=== PATIENT | female | born 1985 | race Caucasian/White ===

== ENCOUNTER 2017-07-28 09:56 | Outpatient (CLI) | payer OTHER ==
[~2017-07-28] VITALS: Ht 167.6 cm; Wt 100.2 kg
[~2017-07-28 09:56] MED LIST: FERR27TA; PREN1TAB49
[2017-07-28 10:26] VITALS: Ht 167.6 cm; Wt 100.2 kg
[2017-07-28 10:27] VITALS: BP 116/56; PULSE 82; RESP 18
[2017-07-28 11:46] LABS: BASOPHILS % 0.3 % (0.0-2.0); EOSINOPHILS # 0.2 10^3/ul (0.0-0.5); EOSINOPHILS % 2.2 % (0.0-7.0); HEMATOCRIT 33.7 % (37.0-47.0); HEMOGLOBIN 10.9 g/dl (12.0-16.0); LYMPHOCYTES # 1.3 10^3/ul (0.8-2.9); LYMPHOCYTES % 16.9 % (15.0-51.0); MEAN CORPUSCULAR HEMOGLOBIN 26.5 pg (29.0-33.0); MEAN CORPUSCULAR HGB CONC 32.3 g/dl (32.0-37.0); MEAN CORPUSCULAR VOLUME 81.8 fl (82.0-101.0); MEAN PLATELET VOLUME 12.3 fl (7.4-10.4); MONOCYTE # 0.5 10^3/ul (0.3-0.9); MONOCYTES % 6.8 % (0.0-11.0); NEUTROPHIL # 5.4 10^3/ul (1.6-7.5); NEUTROPHILS % 73.3 % (39.0-77.0); PLATELET COUNT 191 10^3/UL (140-415); RED BLOOD COUNT 4.12 10^6/ul (4.20-5.40); RED CELL DISTRIBUTION WIDTH 14.9 % (11.5-14.5); WHITE BLOOD COUNT 7.4 10^3/ul (4.8-10.8)
[2017-07-28 12:15] LABS: ADD UMIC YES; UR ASCORBIC ACID NEGATIVE (NEGATIVE); UR BACTERIA FEW /HPF (NONE SEEN); UR BILIRUBIN (Dip) NEGATIVE (NEGATIVE); UR BLOOD (Dip) NEGATIVE (NEGATIVE); UR CLARITY CLEAR (CLEAR); UR COLOR YELLOW (YELLOW); UR GLUCOSE (Dip) NEGATIVE (NEGATIVE); UR KETONES (Dip) TRACE mg/dL (NEGATIVE); UR LEUKOCYTE ESTERASE (Dip) 2+ Leu/ul (NEGATIVE); UR NITRITE (Dip) NEGATIVE (NEGATIVE); UR RBC 3 /HPF (0-5); UR SPECIFIC GRAVITY (Dip) 1.009 (1.003-1.030); UR SQUAMOUS EPITHELIAL CELL FEW /HPF (FEW); UR TOTAL PROTEIN (Dip) NEGATIVE (NEGATIVE); UR UROBILINOGEN (Dip) 1+ mg/dL (NEGATIVE)
--- NOTE | 2017-07-28 12:25 | RADRPT ---
PROCEDURE: US OB biophysical profile. CLINICAL INDICATION: Contractions TECHNIQUE: Multiple sonographic images of the pelvis were obtained. The images were reviewed on a PACS workstation. COMPARISON: None FINDINGS: There is a single live intrauterine , in cephalic presentation. A normal heart rate i s identified measuring 137 beats per minute. The amniotic fluid index is within normal limits measur ing 9.7 cm. Biophysical profile: movement 2/2 tone 2/2. breathing 2/2 TODD 2/2 Total 04/05 IMPRESSION: 1. Biophysical profile score of 8/8. 2. Single live intrauterine in cephalic presentation with normal heart rate of 137 b pm. 3. Normal amniotic fluid index of 9.7 cm. RPTAT: AAPP Physician Jared Date Time Electronically viewed and signed by Physician Jared on 07/28/2017 12:25 SANDI/
[2017-07-28] MEDS ORDERED: NITR-58 PO ×2 (12:57→12:58)
--- NOTE | 2017-07-28 13:09 | TRIAGE ---
OB Triage Datetime Report Generated by CPN: 07/28/2017 13:09 Datetime: 07/28/2017 12:30 Stage of : OB Triage Maternal Assessment Level of Consciousness: Fully Conscious Labor Evaluation Frequency: 3UC/HR Monitor Mode: External Duration (sec)2399: 100-130 Quality: Mild Resting Tone [place]: Relaxed Heart Rate FHR Baseline Rate: 145 Monitor Mode: External US Variability: Moderate 6-25 bpm Accelerations: 15X15 Decelerations: None Pain Assessment Pain Scale: 5 Pain Presence: Constant Pain Type: Ache Pain Location: Abdomen Pain Goal: 3 Membrane Status: Intact Vaginal Bleeding: None Datetime: 07/28/2017 11:30 Stage of : OB Triage Maternal Assessment Level of Consciousness: Fully Conscious Labor Evaluation Frequency: 1UC/HR Monitor Mode: External Duration (sec)2399: 180 Quality: Mild Resting Tone [place]: Relaxed Heart Rate FHR Baseline Rate: 145 Monitor Mode: External US Variability: Moderate 6-25 bpm Accelerations: 15X15 Decelerations: None Category: Category I Pain Assessment Pain Scale: 5 Pain Presence: Constant Pain Type: Ache Pain Location: Abdomen Pain Goal: 3 Membrane Status: Intact Vaginal Bleeding: None Datetime: 07/28/2017 10:43 Vaginal Exam Dilatation (cms): 0.5 Effacement (%): 40 Station: -3 Exam By: TORRIE Vaginal Bleeding: None Cervix, Consistency: Moderate Cervix, Position: Posterior Datetime: 07/28/2017 10:24 Assessment Type: Triage Maternal Assessment Level of Consciousness: Fully Conscious DTR's/Clonus: DTRs 2+; No Clonus Headache: Denies Blurred Vision: No Respiratory Effort: Unlabored; Regular Rhythm; Equal Expansion Breath Sounds, Left: Clear and Equal Breath Sounds, Right: Clear and Equal Nausea/Vomiting: Denies RUQ Epigastric Pain: Denies Lower Extremities Edema: None Degree: None Upper Extremities Edema: None Degree: None Facial Edema: None Fall Risk Assessment History of Falling: (0) No Secondary Diagnosis: (0) No Ambulatory Aid: (0) Bedrest/Nurse Assist IV Therapy: (0) No Gait: (0) Normal/Bedrest/Immobile Mental Status: (0) Oriented to Own Ability Fall Score: 0 Fall Risk Score Definition: No Risk: No action required Datetime: 07/28/2017 10:21 Time of Arrival: 07/28/2017 09:46 EGA: 37.3 Arrived By: Ambulatory Arrived From: Home Chief Complaint: PT HERE C/O RUQ ABD. PAIN Movement: Present Contractions: Denies/Absent Rupture of Membranes: Denies Vaginal Bleeding: None Vaginal Discharge: Denies Recent Sexual Intercouse: Denies Abdominal Trauma: Not Applicable Time Provider Notified: 07/28/2017 10:00 Provider Notified: FOROOHAR Initial Plan: BPP/EFM/UA/CBC/ Datetime: 07/28/2017 10:18 Monitor Mode: External Monitor Mode: External US
--- NOTE | 2017-07-28 16:14 | CONS ---
Date/Time of Note Date/Time of Note DATE: 07/28/17 TIME: 16:06 Consultation Date/Type/Reason Admit Date/Time July 28, 2017 OB triage consult This patient is a 31 years old 6 para 4 1 living 4 old white vaginal delivery. Came in complaining of right upper quadrant pain. On examination she is a well-developed well-nourished somewhat overweight lady near-term. Her body weight has 100.2 kg. During this most of her tests were normal blood type is Rh- hepatitis B surface antigen HIV gonorrhea chlamydia all were negative RPR was nonreactive and she is immune to rubella. On general examination the findings are fairly normal with blood pressure of 116 /56, pulse rate 82, respiration 18, temperature 98.3, O2 saturation at room temperature was 99%. Reason for Consultation Laboratory Tests Test 07/28/17 11:00 White Blood Count 7.410^3/ul Red Blood Count 4.1210^6/ul Hemoglobin 10.9g/dl Hematocrit 33.7% Mean Corpuscular Volume 81.8fl Mean Corpuscular Hemoglobin 26.5pg Mean Corpuscular Hemoglobin Concent 32.3g/dl Red Cell Distribution Width 14.9% Platelet Count 84867^3/UL Mean Platelet Volume 12.3fl Neutrophils % 73.3% Lymphocytes % 16.9% Monocytes % 6.8% Eosinophils % 2.2% Basophils % 0.3% Nucleated Red Blood Cells % 0.0/100WBC Neutrophils # 5.410^3/ul Lymphocytes # 1.310^3/ul Monocytes # 0.510^3/ul Eosinophils # 0.210^3/ul Basophils # 0.010^3/ul Nucleated Red Blood Cells # 0.010^3/ul Urine Color YELLOW Urine Clarity CLEAR Urine pH 7.0 Urine Specific [place] 1.009 Urine Ketones TRACEmg/dL Urine Nitrite NEGATIVEmg/dL Urine Bilirubin NEGATIVEmg/dL Urine Urobilinogen 1+mg/dL Urine Leukocyte Esterase 2+Cici/ul Urine Microscopic RBC 3/HPF Urine Microscopic WBC 9/HPF Urine Squamous Epithelial Cells FEW/HPF Urine Bacteria FEW/HPF Urine Hemoglobin NEGATIVEmg/dL Urine Glucose NEGATIVEmg/dL Urine Total Protein NEGATIVEmg/dl Constitutional: No chills, No diaphoresis, No disoriented, No febrile, No improved, No no complaints, No other, No poor po, No requiring IVF, No requiring O2 Eyes: No discharge, No no complaints, No other, No pain, No redness, No visual change ENT: No bleeding, No congestion, No discharge, No dysphagia, No no complaints, No other, No pain, No sore throat Cardiovascular: No chest pain, No edema, No lightheadedness, No no complaints, No orthopenea, No other, No palpitations, No paroxysmal nocturnal dyspnea Gastrointestinal: No blood, No constipation, No decreased appetite, No diarrhea , No flatus, No nausea, No no complaints, No other, No pain, No passing stool, No vomiting Genitourinary: other (On pelvic examination the cervix was about 1 fingertip thick and hollowing in the membrane was intact), No bleeding, No discharge, No dysuria, No flank pain, No hematuria, No no complaints Musculoskeletal: No back pain, No bone/joint pain, No neck pain, No no complaints, No other, No restricted range of motion, No swelling Skin: No bruising, No erythema, No laceration, No no complaints, No other, No pruritis, No rash, No skin lesions Neurologic: other (Knee-jerk reflex was normal), No confusion, No dizziness, No focal-weakness, No headache, No no complaints , No seizure, No syncope Endocrine: No dry skin, No no complaints, No other, No polydypsia, No polyuria , No temp intolerance Additional Comments . On urine exam was 1+ urobilinogen and leukoesterase was 2+ positive WBC was 9 on her CBC she has anemic with hemoglobin of 11.9 hematocrit 37.7 otherwise CBC was within normal limits On ultrasound study report is single live intrauterine in vertex presentation heartbeat of 137 amniotic fluid index was reported 9.7 cm the biophysical profile was 8/8 Disposition. With these findings patient was given a prescription for Macrobid 100 mg to be taken twice a day for 10 days. On the urine specimen for sent for urinalysis and culture and sensitivity. Patient was informed that to ask her attending physician to call the lab in about 3 days to check the result of the culture and sensitivity to adjust the antibiotic treatment accordingly end of dictation .. Social History Smoking Status: Never smoker Exam/Review of Systems Vital Signs Vitals Vital Signs Date Time Temp Pulse Resp B/P Pulse Ox O2 Delivery O2 Flow Rate FiO2 07/28/17 10:27 98.3 82 18 116/56 99 Room Air Results Result Diagram: 07/28/17 1100 Results 24 hrs Laboratory Tests Test 07/28/17 11:00 White Blood Count 7.4 Red Blood Count 4.12 L Hemoglobin 10.9 L Hematocrit 33.7 L Mean Corpuscular Volume 81.8 L Mean Corpuscular Hemoglobin 26.5 L Mean Corpuscular Hemoglobin Concent 32.3 Red Cell Distribution Width 14.9 H Platelet Count 191 Mean Platelet Volume 12.3 H Neutrophils % 73.3 Lymphocytes % 16.9 Monocytes % 6.8 Eosinophils % 2.2 Basophils % 0.3 Nucleated Red Blood Cells % 0.0 Neutrophils # 5.4 Lymphocytes # 1.3 Monocytes # 0.5 Eosinophils # 0.2 Basophils # 0.0 Nucleated Red Blood Cells # 0.0 Urine Color YELLOW Urine Clarity CLEAR Urine pH 7.0 Urine Specific [place] 1.009 Urine Ketones TRACE A Urine Nitrite NEGATIVE Urine Bilirubin NEGATIVE Urine Urobilinogen 1+ H Urine Leukocyte Esterase 2+ H Urine Microscopic RBC 3 Urine Microscopic WBC 9 H Urine Squamous Epithelial Cells FEW Urine Bacteria FEW A Urine Hemoglobin NEGATIVE Urine Glucose NEGATIVE Urine Total Protein NEGATIVE MARNI OLMEDO MD Jul 28, 2017 16:14
== END 2017-07-28 13:08 | disposition home or self-care (01) ==
LOC: L-D 09:56 → OBT 09:56
PROVIDERS: ATTEND Obstetrics & Gynecology
DX: O26.893 Other specified pregnancy related conditions, third trimester (principal); Z3A.37 37 weeks gestation of pregnancy; R10.11 Right upper quadrant pain
CPT/HCPCS: 36415; 76818; 81001; 85025; 87086; Z7500; G0463

== ENCOUNTER 2017-08-12 11:02 | Inpatient (IN) | payer OTHER ==
[~2017-08-12] VITALS: Ht 167.6 cm; Wt 100.2 kg
[~2017-08-12 11:02] MED LIST changes: +NITR-58 PO
[2017-08-12 11:27] VITALS: BP 128/80; PULSE 71; RESP 18; Ht 167.6 cm; Wt 100.2 kg
--- NOTE | 2017-08-12 12:37 | RADRPT ---
PROCEDURE: US OB biophysical profile. CLINICAL INDICATION: Decreased movement TECHNIQUE: Multiple sonographic images of the pelvis were obtained. The images were reviewed on a PACS workstation. COMPARISON: None FINDINGS: There is a single live intrauterine , in cephalic presentation. A normal heart rate i s identified measuring 122 beats per minute. The amniotic fluid index is within normal limits measur ing 14.4 cm. The placenta is grade II, located posteriorly. Biophysical profile: movement 2/2 tone 2/2. breathing 2/2 TODD 2/2 Total 04/05 IMPRESSION: 1. Biophysical profile score of 04/05. 2. Single live intrauterine in cephalic presentation with normal heart rate of 122 b pm. 3. Normal amniotic fluid index of 14.4 cm. RPTAT: AAPP Physician Jared Date Time Electronically viewed and signed by Physician Jared on 08/12/2017 12:37 SANDI/
--- NOTE | 2017-08-12 14:19 | TRIAGE ---
OB Triage Datetime Report Generated by CPN: 08/12/2017 14:19 Datetime: 08/12/2017 14:09 Labor Evaluation Frequency: 2-5 Monitor Mode: External Duration (sec)2399: 40-50 Quality: Mild Resting Tone [place]: Relaxed Heart Rate FHR Baseline Rate: 135 Monitor Mode: External US Variability: Moderate 6-25 bpm Accelerations: 10X10 Decelerations: None Category: Category I Pain Assessment Pain Scale: 4 Pain Presence: Intermittent Pain Type: Cramping Pain Location: Abdomen Pain Goal: 3 Pain Relief Measures: Comfort Measures Datetime: 08/12/2017 14:02 Stage of : OB Triage Vaginal Exam Dilatation (cms): 4.0 Effacement (%): 70 Exam By: DR BROWNLEE Vaginal Bleeding: None Cervix, Consistency: Soft Cervix, Position: Midposition Presentation 'A': Cephalic Datetime: 08/12/2017 14:00 Vaginal Exam Dilatation (cms): 1.5 Effacement (%): 60 Station: -2 Exam By: Robby CARLOS Vaginal Bleeding: None Cervix, Consistency: Soft Cervix, Position: Posterior Presentation 'A': Cephalic Datetime: 08/12/2017 12:29 Labor Evaluation Frequency: 7-8 Monitor Mode: External Duration (sec)2399: 50-60 Pattern: Normal: <= 5 Contractions in 10 Minutes Resting Tone [place]: Relaxed Heart Rate FHR Baseline Rate: 135 Monitor Mode: External US Variability: Moderate 6-25 bpm Accelerations: 10X10 Decelerations: None Category: Category I Pain Assessment Pain Scale: 5 Pain Presence: Intermittent Pain Type: Cramping Pain Location: Abdomen Pain Goal: 3 Pain Relief Measures: Comfort Measures Datetime: 08/12/2017 11:57 Stage of : OB Triage Datetime: 08/12/2017 11:14 Stage of : OB Triage Assessment Type: Triage Maternal Assessment Level of Consciousness: Fully Conscious DTR's/Clonus: DTRs 2+; No Clonus Headache: Denies Blurred Vision: No Respiratory Effort: Unlabored; Regular Rhythm; Equal Expansion Breath Sounds, Left: Clear and Equal Breath Sounds, Right: Clear and Equal Nausea/Vomiting: Denies RUQ Epigastric Pain: Denies Facial Edema: None Temperature Route: Axillary Fall Risk Assessment History of Falling: (0) No Secondary Diagnosis: (0) No Ambulatory Aid: (0) Bedrest/Nurse Assist IV Therapy: (0) No Gait: (0) Normal/Bedrest/Immobile Mental Status: (0) Oriented to Own Ability Fall Score: 0 Fall Risk Score Definition: No Risk: No action required Labor Evaluation Frequency: 0 Monitor Mode: External Resting Tone [place]: Relaxed Interventions: Sterile Vaginal Exam Heart Rate FHR Baseline Rate: 125 Monitor Mode: External US Variability: Moderate 6-25 bpm Accelerations: 10X10 Decelerations: None Category: Category I Pain Assessment Pain Scale: 7 Pain Presence: Intermittent Pain Type: Cramping; Contraction Pain Location: Abdomen; Perineum Pain Goal: 3 Pain Relief Measures: Comfort Measures Vaginal Exam Dilatation (cms): 0.5 Effacement (%): 50 Station: -3 Exam By: Robby BREANNA Membrane Status: Intact Datetime: 08/12/2017 11:12 Time of Arrival: 08/12/2017 11:00 EGA: 39.4 Arrived By: Ambulatory Arrived From: Home Chief Complaint: C/O UC'S PAST 2 DAYS Q 5-6 MIN, WITH SM AMT OF BLEEDING, DENIES LEAKING Movement: Decreased Contractions: Irregular Contractions: 5-7 Rupture of Membranes: Denies Vaginal Bleeding: Scant Vaginal Discharge: Denies Recent Sexual Intercouse: Denies Abdominal Trauma: Not Applicable Patient Complaints: Contractions; Cramping Time Provider Notified: 08/12/2017 11:57 Provider Notified: TORRIE Initial Plan: MONITOR, VE, Datetime: 07/28/2017 10:24 Fall Score: 0 Fall Risk Score Definition: No Risk: No action required Datetime: 07/28/2017 10:21 EGA: 37.3
[2017-08-12] MEDS ORDERED: LIDOCAINE 1% (MPF) 30 ML INJ INJ PRN (14:30)
[2017-08-12] MEDS ORDERED: CARBOPROST 250 MCG INJ IM PRN (14:30)
[2017-08-12] MEDS ORDERED: OXYTOCIN 30 UNITS/LR 500 ML IV PRN (14:30)
[2017-08-12] MEDS ORDERED: BUTORPHANOL 2 MG INJ IV PRN ×2 (14:30)
[2017-08-12] MEDS ORDERED: OXYTOCIN 30 UNITS/LR 500 ML IV SCH ×2 (14:30)
[2017-08-12] MEDS ORDERED: MISOPROSTOL 200 MCG TAB PR PRN (14:30)
[2017-08-12] MEDS ORDERED: METHYLERGONOVINE 0.2 MG INJ IM PRN (14:30)
[2017-08-12] MEDS: LACTATED RINGER'S 1,000 ML IV SCH (15:21)
[2017-08-12 15:23] LABS: BASOPHILS % 0.4 % (0.0-2.0); EOSINOPHILS # 0.2 10^3/ul (0.0-0.5); EOSINOPHILS % 1.9 % (0.0-7.0); HEMATOCRIT 35.4 % (37.0-47.0); HEMOGLOBIN 11.8 g/dl (12.0-16.0); LYMPHOCYTES # 1.5 10^3/ul (0.8-2.9); LYMPHOCYTES % 18.3 % (15.0-51.0); MEAN CORPUSCULAR HEMOGLOBIN 26.6 pg (29.0-33.0); MEAN CORPUSCULAR HGB CONC 33.3 g/dl (32.0-37.0); MEAN CORPUSCULAR VOLUME 79.9 fl (82.0-101.0); MONOCYTE # 0.5 10^3/ul (0.3-0.9); MONOCYTES % 5.5 % (0.0-11.0); NEUTROPHIL # 6.1 10^3/ul (1.6-7.5); NEUTROPHILS % 73.7 % (39.0-77.0); PLATELET COUNT 172 10^3/UL (140-415); RED BLOOD COUNT 4.43 10^6/ul (4.20-5.40); RED CELL DISTRIBUTION WIDTH 14.9 % (11.5-14.5); WHITE BLOOD COUNT 8.2 10^3/ul (4.8-10.8)
[2017-08-12 15:38] LABS: INR 0.93; PARTIAL THROMBOPLASTIN TIME 26.3 Sec (25.0-35.0); PROTIME 12.6 Sec (11.9-14.9)
[2017-08-12] MEDS: LACTATED RINGER'S 1,000 ML IV PRN ×2 (19:49→21:45)
[2017-08-12] MEDS ORDERED: FENTAnyl 2MCG/ML-ROPIV 0.2% 100 ML ONE (21:34)
[2017-08-12] MEDS ORDERED: EPHEDrine SULFATE 50 MG/5 ML SYG IV PRN (22:30)
[2017-08-12] MEDS ORDERED: DIPHENHYDRAMINE 50 MG INJ IV PRN (22:30)
[2017-08-12] MEDS ORDERED: FENTAnyl 2MCG/ML-ROPIV 0.2% 100 ML BAG EPI SCH (22:30)
[2017-08-12] MEDS ORDERED: ONDANSETRON 4 MG INJ IV PRN (22:30)
[2017-08-12] MEDS ORDERED: NALOXONE (0.4 MG/ML) INJ IV PRN (22:30)
[2017-08-13] MEDS ORDERED: OXYTOCIN 30 UNITS/LR 500 ML IV SCH
[2017-08-13] MEDS: LACTATED RINGER'S 1,000 ML IV SCH (02:02)
--- NOTE | 2017-08-13 04:12 | HP ---
Date/Time of Note Date/Time of Note DATE: 08/13/17 TIME: 04:06 OB - History Hx of Present Free Text/Dictation 31 y.o (iab) at 39w4 in early laborwith intact membrane initial ve 50/-3 GBS unknown admitted for expectant management. desire to have pp tubal sterilization Chief Complaint: UC Estimated Due Date: Aug 15, 2017 : 6 Para: 4 Spontaneous : 0 Therapeutic : 1 Care: Good Care Ultrasounds: Normal mid trimester US Obstetrical Complications: None Medical Complications: None Past Family/Social History * Past Medical, Surgical, Family and Obstetric Histories reviewed from chart. Blood Type: AB+ Rubella: immune RPR/VDRL: Negative GBS Status: Unknown HBsAG: Negative OB Admission Exam Vital Signs Vital Signs Vital Signs Date Time Temp Pulse Resp B/P Pulse Ox O2 Delivery O2 Flow Rate FiO2 08/12/17 11:27 97.6 71 18 128/80 Room Air Physical Exam HEENT: WNL Heart: Rhythm Normal Lungs: Clear, Equal Abdomen: WNL Extremities: Normal Reflexes: Normal Cervical Dilatation: 1cm Effacement: 50% Station: -3 Membranes: Intact Amniotic Fluid: Unevaluable Heart Rate: 120's Accelerations: Accelerations Present Decelerations: No Decelerations Varibility: Moderate Contractions on Admission: < 5 Minutes Apart Intensity: Mild Last 72 hours Lab Results CBC & BMP 08/12/17 14:50 OB Assessment/Plan Other Assessment: IUP 39w4d in early labor Plan: Expectant Management BRENDAN MONTERO MD Aug 13, 2017 04:12
--- NOTE | 2017-08-13 04:16 | LDN ---
Date/Time of Note Date/Time of Note DATE: 08/13/17 TIME: 04:12 Delivery Summary of normal female infant Weeks of Gestation 39w5d Placenta Delivered: Spontaneously Episiotomy: No Perineal laceration: 1 Laceration repair: 000ch gut Anesthesia type: Epidural Sponge & Needle done & correct: Yes All needle counts correct: Yes Any foreign bodies felt in the: No Problems: Infant Delivery Information Sex Infant Sex: female Apgars 1 Minute: 8 5 Minute: 9 Suctioning Nose & mouth suctioned at mary lou: Yes Delee suction performed: No Umbilical Cord Umbilical cord with: 3 Vessels Cord presentations: no nuchal cord Cord Blood was obtained: Yes Mother & Baby Disposition Disposition Mom & Baby to Maternity; Good: Yes Mom transferred to: Other Baby to NICU: No () BRENDAN MONTERO MD Aug 13, 2017 04:16
[2017-08-13] MEDS ORDERED: MISOPROSTOL 200 MCG TAB PR PRN (05:30)
[2017-08-13] MEDS ORDERED: CARBOPROST 250 MCG INJ IM PRN (05:30)
[2017-08-13] MEDS ORDERED: OXYTOCIN 30 UNITS/LR 500 ML IV PRN (05:30)
[2017-08-13] MEDS ORDERED: LANOLIN 7 GM TUBE TOP PRN (05:30)
[2017-08-13] MEDS ORDERED: METHYLERGONOVINE 0.2 MG INJ IM PRN (05:30)
[2017-08-13] MEDS ORDERED: WITCH HAZEL/GLYCERIN PAD PR PRN (05:30)
[2017-08-13] MEDS ORDERED: ZOLPIDEM 5 MG TAB PO PRN (05:30)
[2017-08-13] MEDS ORDERED: BENZOCAINE 20% 56 ML SPRAY TOP PRN (05:30)
[2017-08-13] MEDS ORDERED: OXYCODONE/ASPIRIN (4.88/325) TAB PO PRN ×2 (05:30)
[2017-08-13 05:50] VITALS: BP 103/57; PULSE 71; RESP 21
[2017-08-13] MEDS ORDERED: IBUPROFEN 600 MG TAB PO SCH (06:00)
[2017-08-13] MEDS ORDERED: HYDROCODONE/APAP (5/325) TAB PO PRN (06:00)
[2017-08-13] MEDS ORDERED: ACETAMINOPHEN 325 MG TAB PO PRN (06:00)
[2017-08-13 07:00] VITALS: BP 119/57; PULSE 73; RESP 21
[2017-08-13 07:45] VITALS: BP 101/59; PULSE 59; RESP 18
[2017-08-13] MEDS: SENNA/DOCUSATE NA (8.6MG/50MG) TAB PO SCH ×2 (08:49→20:47)
[2017-08-13] MEDS: HYDROCODONE/APAP (5/325) TAB PO PRN (12:17)
[2017-08-13 16:00] VITALS: BP 113/56; PULSE 77; RESP 18
[2017-08-13 19:30] VITALS: BP 106/53; PULSE 79; RESP 19
[2017-08-14 04:00] VITALS: BP 108/61; PULSE 67; RESP 19
[2017-08-14 08:16] VITALS: BP 114/65; PULSE 63; RESP 18
[2017-08-14] MEDS: SENNA/DOCUSATE NA (8.6MG/50MG) TAB PO SCH ×2 (09:08→21:00)
[2017-08-14 09:16] LABS: BASOPHILS % 0.3 % (0.0-2.0); EOSINOPHILS # 0.2 10^3/ul (0.0-0.5); EOSINOPHILS % 1.9 % (0.0-7.0); LYMPHOCYTES # 1.3 10^3/ul (0.8-2.9); LYMPHOCYTES % 14.8 % (15.0-51.0); MEAN CORPUSCULAR HEMOGLOBIN 26.8 pg (29.0-33.0); MEAN CORPUSCULAR HGB CONC 32.4 g/dl (32.0-37.0); MEAN CORPUSCULAR VOLUME 82.9 fl (82.0-101.0); MEAN PLATELET VOLUME 11.7 fl (7.4-10.4); MONOCYTE # 0.4 10^3/ul (0.3-0.9); MONOCYTES % 4.7 % (0.0-11.0); NEUTROPHIL # 7.1 10^3/ul (1.6-7.5); NEUTROPHILS % 77.9 % (39.0-77.0); PLATELET COUNT 163 10^3/UL (140-415); WHITE BLOOD COUNT 9.1 10^3/ul (4.8-10.8)
--- NOTE | 2017-08-14 11:42 | QN ---
Documentation Comment day 1 Vital signs are stable Afebrile Abdomen soft uterus firm. Lochia normal. Extremities normal. Ambulation encouraged. SON BROWNLEE MD Aug 14, 2017 11:42
[2017-08-14 15:59] VITALS: BP 113/65; PULSE 71; RESP 18
[2017-08-14 20:15] VITALS: BP 120/58; PULSE 68; RESP 18
[2017-08-15] MEDS: HYDROCODONE/APAP (5/325) TAB PO PRN (04:07)
[2017-08-15 05:03] VITALS: BP 93/56; PULSE 73; RESP 18
[2017-08-15 07:50] VITALS: BP 106/55; PULSE 69; RESP 18
[2017-08-15] MEDS: SENNA/DOCUSATE NA (8.6MG/50MG) TAB PO SCH (08:51)
[2017-08-15] MEDS ORDERED: DIPHTH/TET/ACEL PERTUSS (ADULT) 0.5 ML VIAL IM* ONE (09:00)
--- NOTE | 2017-08-15 12:58 | PD.PPDC ---
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
--- NOTE | 2017-08-15 13:02 | DS ---
Date/Time of Note Date/Time of Note DATE: 08/15/17 TIME: 13:00 Discharge Summary Admission/Discharge Info Admit Date/Time Aug 12, 2017 at 13:10 Discharge Date/Time August 15, 2017 at 1300 Discharge Diagnosis Post normal vaginal delivery Patient Condition: Good Procedures Normal vaginal delivery Hx of Present Illness Term Hospital Course Satisfactory recovery uneventful Home Meds Reported Medications Nitrofurantoin Monohyd Macrocr* (Macrobid*) 100 Mg Capsr, 100 MG PO BID, CAP 07/28/17 Ferrous Sulfate (Iron) 1 Tab Tablet 08/14/10 Vits W-Ca,Fe,Fa(<1MG) () 1 Tab Tablet 08/14/10 Follow-up Plan instruction given recommended to make appointment to be seen at the clinic in 2 weeks Primary Care Provider [facility] Time spent on discharge: < 30 minutes SON BROWNLEE MD Aug 15, 2017 13:02
== END 2017-08-15 14:10 | disposition home or self-care (01) | DRG 775 ==
LOC: L-D 11:02 → OBT 11:02 → L-D 13:10 → OBT 14:13 → L-D 14:49 → PP1 08-13 05:59
PROVIDERS: ADMIT Obstetrics & Gynecology; ATTEND Obstetrics & Gynecology
PROC: 10E0XZZ Delivery of Products of Conception, External Approach (ICD-10-PCS; principal; 2017-08-13)
PROC: 0HQ9XZZ Repair Perineum Skin, External Approach (ICD-10-PCS; 2017-08-13)
DX: O70.0 First degree perineal laceration during delivery (principal); Z37.0 Single live birth; Z3A.39 39 weeks gestation of pregnancy
CPT/HCPCS: 62319; 76818; 85025; 85610; 85730; 86592; 86850; 86885; 86900; 86901; 87340; 90715; G0463; J2590; J2790; J3010; J7120